=== PATIENT | female | born 1945 | race Caucasian/White ===

== ENCOUNTER 2021-04-24 13:51 | Emergency (ER) | payer OTHER ==
[~2021-04-24] VITALS: Ht 157.5 cm; Wt 65.8 kg
== END 2021-04-24 16:37 | disposition home or self-care (01) ==
LOC: ER1 13:51
DX: U07.1 COVID-19 (principal); Z88.2 Allergy status to sulfonamides; Z23 Encounter for immunization
CPT/HCPCS: 99283; M0245